=== PATIENT | female | born 2000 | race Caucasian/White ===

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

== ENCOUNTER 2018-10-21 19:24 | Emergency (ER) | payer OTHER, BC ==
[~2018-10-21] VITALS: Ht 149.9 cm; Wt 56.7 kg
[~2018-10-21 19:24] MED LIST changes: +KEFLEX500 M2 PO; +ONDANSETRON HCL4 M2 PO
[2018-10-21] MEDS ORDERED: KEFLEX500 M1 PO (20:38)
[2018-10-21 20:49] VITALS: BP 118/70
== END 2018-10-21 20:49 | disposition home or self-care (01) ==
LOC: M.ERS 19:24
DX: S89.81XA Other specified injuries of right lower leg, initial encounter (principal); X58.XXXA Exposure to other specified factors, initial encounter; Y93.89 Activity, other specified; Y92.89 Other specified places as the place of occurrence of the external cause; Y99.8 Other external cause status